=== PATIENT | female | born 1970 | race Caucasian/White ===

== ENCOUNTER → 2020-08-10 07:58 | Outpatient (CLI) | payer BC, SELFPAY ==
--- NOTE | ~2020-08-10 | MMUS_ITS ---
EXAMINATION: MM diag alessia implant BI w brian, US breast LT complete HISTORY: Left breast asymmetry reported on 01/07/2019 screening mammogram TECHNIQUE: Implant displaced 3-D tomosynthesis images of both breasts were performed and synthetic 2- D images were generated. Bilateral implant views. CAD analysis was submitted and interpreted. High re solution complete left breast ultrasound was performed. COMPARISON: 01/03/2019 bilateral implant digital screening mammogram BREAST PARENCHYMAL COMPOSITION: The breasts are heterogeneously dense, which may obscure small masses . FINDINGS: MAMMOGRAPHIC FINDINGS: Status post bilateral augmentation mammoplasty. Mild fibroglandular asymmetry is again noted. No suspicious mass or architectural distortion is evide nt. No malignant calcification, skin thickening or retraction is detected. ULTRASOUND: Complete left breast sonographic examination was performed. There is a 2 x 2.7 x 3.1 mm sonolucency with through transmission posterior enhancement at 10:00 4 cm from the nipple consistent with small cyst. No suspicious mass or shadowing is evident. IMPRESSION: 1. No mammographic evidence of malignancy 2. Routine mammographic screening is recommended. BI-RADS Category 2: Benign finding(s). Reviewed, dictated and finalized at location A. IMPRESSION: 1. No mammographic evidence of malignancy 2. Routine mammographic screening is recommended. BI-RADS Category 2: Benign finding(s).
== END ==
PROVIDERS: PCP Family Medicine; Visit Provider Nurse Practitioner Family
DX: N60.02 Solitary cyst of left breast (principal)
CPT/HCPCS: 76641; 77062; 77066; G0279

== ENCOUNTER 2020-11-02 15:26 | Outpatient (CLI) | payer BC, SELFPAY ==
--- NOTE | ~2020-11-02 | MR_ITS ---
EXAMINATION: MR shoulder RT wo con DATE: 11/02/2020 16:07 INDICATION: Chronic right shoulder pain, weakness and limited range of motion post injury 5 years pato or. TECHNIQUE: Magnetic resonance imaging (MRI) of the right shoulder was performed without intravenous c ontrast. Sequences included axial PD-weighted FS FSE, coronal oblique PD-weighted FS FSE, coronal obl ique T2-weighted FS FSE, sagittal PD-weighted FS FSE, and sagittal T1-weighted SE. COMPARISON: None. FINDINGS: Coracoacromial arch: The acromion undersurface is curved in morphology (type II). The coracoacromial ligament is normal. M inimal acromioclavicular osteoarthritis. Rotator cuff: Supraspinatus and infraspinatus tendinopathy with moderate tendinopathy at the conjoined portion of t he tendons but without discrete tear. The teres minor and subscapularis tendons are normal. Normal ro tator cuff muscle bulk and signal. Biceps tendon, glenoid labrum and glenohumeral cartilage: Long head of the biceps tendon is normal. Glenoid labrum is normal. Glenohumeral cartilage is normal. Fluid: Physiologic amount of fluid in the glenohumeral joint and biceps tendon sheath. No loose osteochondra l bodies. Small amount of fluid in the subacromial/subdeltoid bursa consistent with mild bursitis. Bones: Normal marrow signal with no edema, fracture or pathologic marrow replacing process. IMPRESSION: 1. Moderate tendinopathy of the conjoined supraspinatus and infraspinatus tendons without discrete te ar. 2. Mild subacromial/subdeltoid bursitis. Reviewed, dictated and finalized at location A. IMPRESSION: 1. Moderate tendinopathy of the conjoined supraspinatus and infraspinatus tendo ns without discrete tear. 2. Mild subacromial/subdeltoid bursitis.
== END 2020-11-02 15:27 | disposition home or self-care (01) ==
PROVIDERS: PCP Family Medicine; Visit Provider Nurse Practitioner Family
DX: S49.91XA Unspecified injury of right shoulder and upper arm, initial encounter (principal); X58.XXXA Exposure to other specified factors, initial encounter; M75.51 Bursitis of right shoulder
CPT/HCPCS: 73221

== ENCOUNTER → 2022-02-28 07:29 | Outpatient (CLI) | payer BC, SELFPAY ==
--- NOTE | ~2022-02-28 | MM_ITS ---
EXAMINATION: MM scrn alessia implant BI w brian HISTORY: Screening mammogram TECHNIQUE: Craniocaudal and mediolateral oblique 3-D tomosynthesis images with implant displacement a nd synthetic 2-D images were generated. Craniocaudal and mediolateral oblique views of the breasts wi thout implant displacement were obtained using full field digital mammography. CAD analysis was submi tted and interpreted. COMPARISON: Comparison to multiple prior studies sequentially, with oldest reviewed study dated 01/07. BREAST PARENCHYMAL COMPOSITION: There are scattered areas of fibroglandular density. FINDINGS: There are bilateral subpectoral silicone implants. The right breast is stable without evide nce for malignancy. Left breast asymmetries in the superior aspect of the left breast on MLO view are unchanged compared with prior studies. No new masses, calcifications or architectural distortion in either breast to suggest malignancy. IMPRESSION: 1. No mammographic evidence of malignancy. 2. Recommend routine screening mammography in one year. BI-RADS Category 1: Negative Reviewed, dictated and finalized at location A. ONAL CARE WORKER
== END ==
PROVIDERS: PCP Family Medicine; Visit Provider Obstetrics & Gynecology
DX: Z12.31 Encounter for screening mammogram for malignant neoplasm of breast (principal)
CPT/HCPCS: 77063; 77067

== ENCOUNTER 2022-04-13 16:54 | Emergency (ER) | payer BC, SELFPAY ==
[2022-04-13 17:05] VITALS: BP 110/84; PULSE 80; RESP 16; TEMP 37.3; O2SAT 100
--- NOTE | 2022-04-13 17:18 | ED.URI ---
HPI - URI/Sore Throat General Chief Complaint: Upper Respiratory Infection Stated Complaint: cough, lt side pain Time Seen by Provider: 04/13/22 17:18 Source: patient, RN notes reviewed and old records reviewed Mode of arrival: ambulatory Limitations: no limitations History of Present Illness HPI Narrative: 52-year-old female presents to the [facility] with left lower rib pain and cough that started about a month ago, worsening over the last 10 days. Was originally on a Z-Gage, was prescribed cefdinir for her symptoms as well. Has taken at home muscle relaxers and anti-inflammatories with no relief. States she has tried calling her primary care provider for an appointment today, was referred to the emergency room. Related Data Allergies Allergy/AdvReac Type Severity Reaction Status Date / Time No Known Allergies Allergy Verified 12/06/21 07:41 Review of Systems Review of Systems: All systems reviewed & are unremarkable except as noted in HPI and below Constitutional: Constitutional: Reports no additional constitutional complaints Eyes: Eyes: Reports no additional eye complaints ENT: Reports system reviewed and no additional complaints, except as documented Cardiovascular: Cardiovascular: Reports no additional cardiovascular complaints, Denies chest pain and Denies dyspnea Respiratory: Respiratory: Reports as per HPI, Reports chest congestion, Reports cough and Reports dyspnea Gastrointestinal: Gastrointestinal: Reports no additional gastrointestinal complaints, Denies abdominal pain, Denies nausea and Denies vomiting Musculoskeletal: Musculoskeletal: Reports no additional musculoskeletal complaints Integumentary/Breasts: Skin/Breast: Reports system reviewed and no additional complaints, except as docu Neurologic: Reports system reviewed and no additional complaints, except as documented Psychiatric: Psychiatric: Reports no additional psychiatric complaints Allergic/Immunologic: Allergic/Immunologic: Reports no additional allergic/immunologic complaints PMFSH Past Medical History Medical History Encounter for IUD insertion 04/13/09 Mirena removal/reinsertion Encounter for IUD removal 04/13/09 Mirena removal/reinsertion 11/25/12 Mirena removal in OR Screening mammogram, encounter for Surgical History Surgical History History of appendectomy History of dilation and curettage 11/25/12 hscope d&c/Novasure endometrial ablation/IUD removal History of endometrial ablation 11/25/12 hscope d&c/Juvencio endometrial ablation/IUD removal Family History Family History Mother Family history of malignant neoplasm of breast in first degree relative Social History Social History Smoking status: Never smoker Alcohol intake: current Drinks per week: 2 Substance use: never Substance use type: does not use Additional living arrangements comments: / Engaged 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 There is no relevant family history pertinent to the patient complaint. Exam Const: General: cooperative, healthy appearing, comfortable, no acute distress, well developed, alert and well nourished Nutritional Appearance: well nourished Orientation/consciousness: patient oriented x3 Limitations: no limitations HENMT: Head: normal to inspection Ears: hearing grossly normal bilaterally and external ears normal Face/Nose/Sinus: Normal external nose present, Normal nares present, Normal nasal mucous membranes and tur
[2022-04-13] MEDS: ALBUTEROL SULFATE NEB 2.5 MG/3 ML INH INHALATION (17:33)
[2022-04-13] MEDS: IPRATROPIUM BR 0.02% INH SOLN 0.5 MG/2.5 ML VIAL INHALATION (17:33)
[2022-04-13 18:02] VITALS: PULSE 71; RESP 20; O2SAT 100
== END 2022-04-13 18:13 | disposition home or self-care (01) ==
PROVIDERS: Emergency Provider Nurse Practitioner; PCP Family Medicine
DX: J18.9 Pneumonia, unspecified organism (principal); R09.1 Pleurisy
CPT/HCPCS: 94640; 99213; G0463

== ENCOUNTER 2022-04-19 18:12 | Outpatient (CLI) | payer BC, SELFPAY ==
--- NOTE | ~2022-04-19 | XR_ITS ---
AP and oblique views of the bilateral ribs, and PA and lateral chest radiographs Clinical History: Pain Findings: No rib fracture is seen. Osseous alignment is anatomic. Lungs are clear, without focal cons olidation or pleural effusion. Cardiomediastinal contour is within normal limits. Soft tissues are un remarkable. Impression: No rib fracture is seen. Reviewed, dictated and finalized at [facility]. E PRACTITIONER PHYSICIAN ASSISTANT Impression: No rib fracture is seen.
== END 2022-04-19 18:13 | disposition home or self-care (01) ==
PROVIDERS: PCP Family Medicine; Visit Provider Physician Assistant Medical
DX: R07.81 Pleurodynia (principal)
CPT/HCPCS: 71046; 71110

== ENCOUNTER 2024-01-29 11:45 | Outpatient (CLI) | payer OTHER, SELFPAY ==
--- NOTE | ~2024-01-29 | MM_ITS ---
EXAMINATION: MM scrn alessia implant BI w brian HISTORY: Screening mammogram TECHNIQUE: Craniocaudal and mediolateral oblique 3-D tomosynthesis images with implant displacement a nd synthetic 2-D images were generated. Craniocaudal and mediolateral oblique views of the breasts wi thout implant displacement were obtained using full field digital mammography. CAD analysis was submi tted and interpreted. COMPARISON: Comparison to multiple prior studies sequentially, with oldest reviewed study dated 01/07. BREAST PARENCHYMAL COMPOSITION: Dense: The breasts are heterogeneously dense, which may obscure small masses FINDINGS: There is no evidence of suspicious mass, calcification, or architectural distortion to sugg est malignancy in either breast. There has been no suspicious interval change. IMPRESSION: 1. No mammographic evidence of malignancy. 2. Recommend routine screening mammography in one year. BI-RADS Category 1: Negative Reviewed, dictated and finalized at location B.
== END 2024-01-29 11:46 | disposition home or self-care (01) ==
LOC: MICIMG 11:47
PROVIDERS: PCP Nurse Practitioner; Visit Provider Obstetrics & Gynecology
DX: Z12.31 Encounter for screening mammogram for malignant neoplasm of breast (principal)
CPT/HCPCS: 77063; 77067

== ENCOUNTER 2024-03-04 15:10 | Outpatient (CLI) | payer OTHER, SELFPAY ==
[2024-03-04 19:23] LABS: Basophils Absolute Auto 0.1 K/mm3 (0.0-0.1); Eosinophils Absolute Auto 0.1 K/mm3 (0-0.3); Eosinophils Percent Auto 0.8 % (0-4.4); Hematocrit 43.7 % (37.0-47.0); Immature Granulocyte Absolute 0.02 K/mm3 (0.00-0.031); Immature Granulocyte Percent A 0.3 % (0-0.5); Lymphocytes Absolute Auto 1.71 K/mm3 (0.9-3.2); Lymphocytes Percent Auto 27.9 % (18.3-44.2); Mean Corpuscular HGB Conc 34.3 g/dl (32-36); Mean Corpuscular Volume 93.2 fl (80-100); Mean Platelet Volume 10.1 fl (7.4-10.4); Monocytes Absolute Auto 0.6 K/mm3 (0.1-0.6); Monocytes Percent Auto 10.4 % (2.6-8.5); Neutrophils Absolute Auto 3.7 K/mm3 (1.3-6.7); Neutrophils Percent Auto 59.6 % (45.5-73.1); Platelet Count Result 352 k/mm3 (150-375); Red Blood Count 4.69 M/mm3 (4.2-5.4); Red Cell Distribution Width 12.2 % (11.5-14.5); White Blood Count 6.1 K/mm3 (4.5-10.0)
[2024-03-04 19:37] LABS: Alanine Aminotransferase 20 U/L (6-35); Albumin Level 4.3 g/dL (3.5-5.1); Alkaline Phosphatase 73 U/L (38-126); Anion Gap 7 mmol/L (4-12); Aspartate Amino Transferase 47 U/L (14-36); Bilirubin,Total 0.9 mg/dL (0.2-1.3); Blood Urea Nitrogen 15 mg/dL (7-17); CRP < 0.5 mg/dL (<1.0); Calcium 9.1 mg/dL (8.4-10.2); Carbon Dioxide 28 mmol/L (22-30); Chloride 102 mmol/L (98-107); Estimated Glomerular Filt Rate > 60; Glucose 100 mg/dL (65-110); Potassium 3.9 mmol/L (3.4-5.0); Sodium 137 mmol/L (137-145)
[2024-03-04 19:56] LABS: Erythrocyte Sedimentation Rate 8 mm/hr (0-20)
[2024-03-04 20:41] LABS: Rheumatoid Factor 24.1 IU/ML (<12)
[2024-03-04 22:16] LABS: Vitamin D 25 Hydroxy 48.8 ng/mL
[2024-03-05 14:24] LABS: ANA Cascade Screen POSITIVE (NEGATIVE); Chromatin (Nucleosomal) Ab <1.0 NEG AI (<1.0 NEG); Chromatin Antibody Charge YES; DNA (ds) Antibody Charge YES; JO1 Antibody Charge YES; Jo-1 Antibody <1.0 NEG AI (<1.0 NEG); RNP Antibody <1.0 NEG AI (<1.0 NEG); RNP Antibody Charge YES; SCL70 Antibody Charge YES; SSA Antibody Charge YES; SSB Antibody Charge YES; Sjogren's Antibody (SS-B) <1.0 NEG AI (<1.0 NEG); Sm Antibody <1.0 NEG AI (<1.0 NEG); Sm Antibody Charge YES; Sm/RNP Antibody <1.0 NEG AI (<1.0 NEG); Sm/RNP Antibody Charge YES
== END 2024-03-04 15:11 | disposition home or self-care (01) ==
LOC: ANHGOSHLAB 15:12
PROVIDERS: PCP Internal Medicine; Visit Provider Nurse Practitioner
DX: R51.9 Headache, unspecified (principal)
CPT/HCPCS: 36415; 80053; 82306; 85025; 85652; 86038; 86140; 86225; 86235; 86364; 86430

== ENCOUNTER 2025-03-17 13:52 | Outpatient (CLI) | payer OTHER, SELFPAY ==
--- NOTE | ~2025-03-17 | MM_ITS ---
EXAMINATION: MM screening mammography implant BI w brian HISTORY: Screening. TECHNIQUE: Craniocaudal and mediolateral oblique 3-D tomosynthesis images were obtained and synthetic 2-D images were generated. CAD analysis was submitted and interpreted. COMPARISON: 2023, 2021, and 2020 BREAST PARENCHYMAL COMPOSITION: Not Dense: There are scattered areas of fibroglandular FINDINGS: There are retropectoral silicone implants. The presence of implants limits the sensitivity of mammography. No suspicious masses are seen. There are no suspicious calcifications. No unexplained architectural distortion is seen. There are no skin or nipple abnormalities identified. There is no adenopathy seen on the images submitted. IMPRESSION: No mammographic evidence to suggest malignancy is seen. The patient may return to screening mammography as per ACR guidelines. BI-RADS 1 - Negative. Reviewed, dictated and finalized at location B. M PROFESSIONAL
== END 2025-03-17 13:53 | disposition home or self-care (01) ==
LOC: MICIMG 13:53
PROVIDERS: PCP Nurse Practitioner; Visit Provider Obstetrics & Gynecology
DX: Z12.31 Encounter for screening mammogram for malignant neoplasm of breast (principal)
CPT/HCPCS: 77063; 77067